=== PATIENT | female | born 1950 | race Hispanic/Latino ===

== ENCOUNTER 2017-10-23 09:02 | Outpatient (CLI) | payer MEDICARE, BC | END 2017-10-23 09:03 | disposition home or self-care (01) | LOC: BICMAMMO 09:02 | PROVIDERS: ATTEND Internal Medicine Endocrinology, Diabetes & Metabolism | DX: N95.9 Unspecified menopausal and perimenopausal disorder (principal); C73 Malignant neoplasm of thyroid gland; E03.9 Hypothyroidism, unspecified; M85.859 Other specified disorders of bone density and structure, unspecified thigh | CPT/HCPCS: 77080 ==

== ENCOUNTER 2020-02-07 10:53 | Outpatient (CLI) | payer MEDICARE ==
--- NOTE | 2020-02-07 11:19 | RAD ---
EXAM: 3 views of the right hand COMPARISON: None HISTORY: Bilateral hand pain FINDINGS: 3 views of the hand shows no evidence of acute fracture or dislocation. Joint space narrowi ng is seen in the interphalangeal joints of the fingers.. No soft tissue swelling is present. 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
--- NOTE | 2020-02-07 11:20 | RAD ---
EXAM: 3 views of the left hand COMPARISON: None HISTORY: Bilateral hand pain FINDINGS: 3 views of the hand shows no evidence of acute fracture or dislocation. Joint space narrowi ng and osteophyte formation is seen in the interphalangeal joints of the fingers. No soft tissue swelling is present. 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
== END 2020-02-07 10:54 | disposition home or self-care (01) ==
LOC: SCSRAD 10:53
PROVIDERS: ATTEND Internal Medicine Rheumatology
DX: M25.541 Pain in joints of right hand (principal); M25.542 Pain in joints of left hand; M19.042 Primary osteoarthritis, left hand; M19.041 Primary osteoarthritis, right hand

== ENCOUNTER 2021-05-12 14:50 | Outpatient (CLI) | payer MEDICARE | END 2021-05-12 14:51 | disposition home or self-care (01) | LOC: SCSRAD 14:50 | PROVIDERS: ATTEND Family Medicine | DX: R05.3 Chronic cough (principal); Z78.0 Asymptomatic menopausal state | CPT/HCPCS: 71046 ==